=== PATIENT | female | born 2000 | race Caucasian/White ===

== ENCOUNTER 2018-09-27 08:49 | Emergency (ER) | payer OTHER ==
[~2018-09-27] VITALS: Ht 157.5 cm; Wt 53.7 kg
--- NOTE | 2018-09-27 09:34 | REP ---
Clinical: Cough and shortness of breath . Comparison: None . Technique: PA and lateral. Findings: The mediastinum and cardiac silhouette are normal. The lung cardona are clear and without acute consolidation, effusion, or pneumothorax. The skeletal structures are intact and normal. Impression: 1. No acute cardiopulmonary process. Electronically Signed by Martin Lutz MD 09/27/2018 09:26 A
[2018-09-27] MEDS ORDERED: MUCI120T PO (09:58)
[2018-09-27] MEDS ORDERED: VENTAER INH (09:58)
[2018-09-27 10:04] VITALS: BP 120/66
== END 2018-09-27 10:08 | disposition home or self-care (01) ==
LOC: M ED 08:49
DX: J20.9 Acute bronchitis, unspecified (principal)

== ENCOUNTER 2018-09-29 09:32 | Emergency (ER) | payer OTHER ==
[~2018-09-29] VITALS: Ht 157.5 cm; Wt 53.6 kg
[~2018-09-29 09:32] MED LIST: MUCI120T PO; VENTAER INH
[2018-09-29 11:55] VITALS: BP 134/74
== END 2018-09-29 11:55 | disposition home or self-care (01) ==
LOC: M ED 09:32
DX: J40 Bronchitis, not specified as acute or chronic (principal); F17.200 Nicotine dependence, unspecified, uncomplicated; Z79.899 Other long term (current) drug therapy

== ENCOUNTER 2018-12-19 02:41 | Emergency (ER) | payer OTHER ==
[~2018-12-19] VITALS: Ht 157.5 cm; Wt 50.9 kg
[2018-12-19 02:42] VITALS: BP 140/81
== END 2018-12-19 04:32 | disposition left against medical advice (07) ==
LOC: M ED 02:41
DX: Z53.21 Procedure and treatment not carried out due to patient leaving prior to being seen by health care provider (principal)

== ENCOUNTER 2019-02-18 00:23 | Emergency (ER) | payer OTHER ==
[~2019-02-18] VITALS: Ht 160 cm; Wt 53.7 kg
[2019-02-18] MEDS ORDERED: VITA-122 PO (00:29)
[2019-02-18] MEDS ORDERED: SERT50TA29 PO (00:29)
[2019-02-18 02:03] LABS: ABG BASE EXCESS -2.4 (-2.0-2.0); ABG HCO3 20.4 MEQ/L (22.0-26.0); ABG PARTIAL PRESSURE CO2 29.6 mmHg (35.0-45.0); ABG PARTIAL PRESSURE O2 168.2 mmHg (75.0-100.0); ABG STANDARD HCO3 22.5 MEQ/L (22.0-26.0); ABG TOTAL CO2 21.3 MEQ/L (22.0-29.0); ABG pH (ARTERIAL) 7.457 UNITS (7.350-7.450)
[2019-02-18 02:50] VITALS: BP 121/66
== END 2019-02-18 02:51 | disposition home or self-care (01) ==
LOC: M ED 00:23
DX: R07.9 Chest pain, unspecified (principal); Z3A.00 Weeks of gestation of pregnancy not specified; O99.340 Other mental disorders complicating pregnancy, unspecified trimester; O99.330 Smoking (tobacco) complicating pregnancy, unspecified trimester; Z79.899 Other long term (current) drug therapy